=== PATIENT | male | born 1955 | race Caucasian/White ===

== ENCOUNTER 2019-07-13 07:45 | Inpatient (IN) | payer MEDICARE ==
[~2019-07-13] VITALS: Ht 165.1 cm; Wt 74.0 kg
[~2019-07-13 07:45] MED LIST: CLARITIN10 MG OR; EPIPEN0.3 MG IM; MORPHINE SUL60 MG OR
[2019-07-13 08:26] LABS: HEMATOCRIT 48.9 % (39.0-50.0); HEMOGLOBIN 16.1 g/dl (14.0-18.0); IMMATURE GRANULOCYTES 0.7 % (0.0-5.0); MEAN CELL VOLUME 90.7 fL CALC (80.0-100.0); MEAN CORPUSCULAR HGB 29.9 pG CALC (26.0-32.0); MEAN CORPUSCULAR HGB CONC 32.9 g/L CALC (32.0-36.0); NEUT# 14.62 thou/uL (1.82-7.42); RED BLOOD COUNT 5.39 mill/uL (4.70-6.10); RED CELL DISTRI WIDTH 12.5 % (11.5-15.5)
[2019-07-13 08:43] LABS: ALBUMIN 5.1 g/dL (3.2-5.0); ALKALINE PHOSPHATASE 93 u/l (38-126); ANION GAP 17 (6-22 (CALC)); BILIRUBIN, TOTAL 0.9 mg/dL (0.0-1.4); BUN 17 mg/dL (8-23); BUN/CREATININE RATIO 14 (12-20 (CALC)); CARBON DIOXIDE 27 mmol/l (22-30); CHLORIDE 104 mmol/l (95-108); CREATININE 1.2 mg/dL (0.7-1.3); GFR > 60 ML/MIN (>=60 (CALC)); GFR FOR AFR.AMER. > 60 ML/MIN (>=60 (CALC)); LIPASE 413 u/l (23-300); POTASSIUM 4.1 mmol/l (3.5-5.1); SGOT/AST 29 u/l (19-48); SODIUM 144 mmol/l (137-146); TOTAL PROTEIN 8.5 g/dL (6.3-8.2)
[2019-07-13] MEDS ORDERED: LISINOPRIL10 MG PO (08:45)
[2019-07-13] MEDS ORDERED: LORTAB 1010 MG PO (08:45)
[2019-07-13] MEDS ORDERED: MS CONTIN30 MG PO (08:46)
[2019-07-13 10:34] LABS: URINE BILIRUBIN - DIPSTICK NEGATIVE (NEGATIVE); URINE BLOOD DIPSTICK NEGATIVE (NEGATIVE); URINE COLOR YELLOW; URINE GLUCOSE - DIPSTICK NEGATIVE (NEGATIVE); URINE KETONE NEGATIVE (NEGATIVE); URINE LEUK ESTERASE NEGATIVE (NEGATIVE); URINE NITRITE - DIPSTICK NEGATIVE (Negative); URINE PH 5.5 (4.5-8.0); URINE SPECIFIC GRAVITY <=1.005; URINE UROBILINOGEN - DIPSTICK 0.2 E.U./dL (0.2)
[2019-07-13 10:54] LABS: URINE PROTEIN - DIPSTICK Trace mg/dL (NEG-TRACE)
[2019-07-13 13:35] VITALS: BP 195/94
[2019-07-13 14:32] VITALS: BP 172/89
[2019-07-13 16:53] VITALS: BP 146/81
[2019-07-13 19:34] VITALS: BP 159/73
[2019-07-14 01:43] VITALS: BP 156/86
[2019-07-14 04:00] VITALS: BP 167/80
[2019-07-14 05:17] LABS: MEAN CELL VOLUME 91.2 fL CALC (80.0-100.0); MEAN CORPUSCULAR HGB 29.7 pG CALC (26.0-32.0); MEAN CORPUSCULAR HGB CONC 32.5 g/L CALC (32.0-36.0); RED BLOOD COUNT 4.55 mill/uL (4.70-6.10); RED CELL DISTRI WIDTH 12.5 % (11.5-15.5)
[2019-07-14 05:34] LABS: HEMATOCRIT 41.5 % (39.0-50.0); HEMOGLOBIN 13.5 g/dl (14.0-18.0)
[2019-07-14 05:39] LABS: ANION GAP 12 (6-22 (CALC)); BUN 18 mg/dL (8-23); BUN/CREATININE RATIO 18 (12-20 (CALC)); CARBON DIOXIDE 25 mmol/l (22-30); CHLORIDE 107 mmol/l (95-108); GFR > 60 ML/MIN (>=60 (CALC)); GFR FOR AFR.AMER. > 60 ML/MIN (>=60 (CALC)); SODIUM 140 mmol/l (137-146)
[2019-07-14 08:00] VITALS: BP 148/61
[2019-07-14 12:00] VITALS: BP 171/82
[2019-07-14 15:05] VITALS: BP 155/67
[2019-07-14 16:49] LABS: URINE BILIRUBIN - DIPSTICK NEGATIVE (NEGATIVE); URINE BLOOD DIPSTICK NEGATIVE (NEGATIVE); URINE COLOR YELLOW; URINE GLUCOSE - DIPSTICK NEGATIVE (NEGATIVE); URINE KETONE NEGATIVE (NEGATIVE); URINE LEUK ESTERASE NEGATIVE (Negative); URINE NITRITE - DIPSTICK NEGATIVE (Negative); URINE PROTEIN - DIPSTICK NEGATIVE (NEG-TRACE); URINE SPECIFIC GRAVITY <=1.005; URINE UROBILINOGEN - DIPSTICK 0.2 E.U./dL (0.2)
[2019-07-14 16:52] LABS: URINE CLARITY CLEAR
[2019-07-14 19:37] VITALS: BP 154/62
[2019-07-15 00:10] VITALS: BP 114/56
[2019-07-15 04:35] VITALS: BP 111/58
[2019-07-15 05:26] LABS: HEMOGLOBIN 11.9 g/dl (14.0-18.0); IMMATURE GRANULOCYTES 0.7 % (0.0-5.0); MEAN CELL VOLUME 92.7 fL CALC (80.0-100.0); MEAN CORPUSCULAR HGB 29.8 pG CALC (26.0-32.0); MEAN CORPUSCULAR HGB CONC 32.2 g/L CALC (32.0-36.0); NEUT# 4.64 thou/uL (1.82-7.42); RED BLOOD COUNT 3.99 mill/uL (4.70-6.10); RED CELL DISTRI WIDTH 12.7 % (11.5-15.5)
[2019-07-15 05:47] LABS: ALKALINE PHOSPHATASE 49 u/l (38-126); ANION GAP 10 (6-22 (CALC)); BUN 15 mg/dL (8-23); BUN/CREATININE RATIO 15 (12-20 (CALC)); CARBON DIOXIDE 23 mmol/l (22-30); CHLORIDE 110 mmol/l (95-108); GFR > 60 ML/MIN (>=60 (CALC)); GFR FOR AFR.AMER. > 60 ML/MIN (>=60 (CALC)); POTASSIUM 3.8 mmol/l (3.5-5.1); SGOT/AST 13 u/l (19-48); SODIUM 139 mmol/l (137-146)
[2019-07-15 05:52] LABS: ALBUMIN 2.6 g/dL (3.2-5.0); BILIRUBIN, TOTAL 0.2 mg/dL (0.0-1.4)
[2019-07-15 08:56] VITALS: BP 163/76
[2019-07-15 09:01] VITALS: BP 163/76
== END 2019-07-15 12:44 | disposition home or self-care (01) | DRG 389 ==
LOC: ED 07:45 → ED-I 11:55 → ED 12:25 → MS2 12:26
PROVIDERS: Family Medicine; ADMIT Internal Medicine; ATTEND Internal Medicine
DX: K56.51 Intestinal adhesions [bands], with partial obstruction (principal); G90.50 Complex regional pain syndrome I, unspecified; R19.7 Diarrhea, unspecified; I10 Essential (primary) hypertension; N40.0 Benign prostatic hyperplasia without lower urinary tract symptoms; N41.1 Chronic prostatitis; Z90.3 Acquired absence of stomach [part of]; T46.4X6A Underdosing of angiotensin-converting-enzyme inhibitors, initial encounter; Z91.128 Patient's intentional underdosing of medication regimen for other reason
CPT/HCPCS: G0378; J1650; Q9967

== ENCOUNTER 2019-10-07 11:27 | Emergency (ER) | payer MEDICARE ==
[~2019-10-07] VITALS: Ht 165.1 cm; Wt 75.0 kg
[~2019-10-07 11:27] MED LIST changes: +LISINOPRIL10 MG PO; +LORTAB 1010 MG PO; +MS CONTIN30 MG PO
[2019-10-07] MEDS ORDERED: AMLODIPINE BESY10 MG PO (11:39)
[2019-10-07 12:57] LABS: HEMATOCRIT 42.7 % (39.0-50.0); HEMOGLOBIN 13.8 g/dl (14.0-18.0); IMMATURE GRANULOCYTES 0.4 % (0.0-5.0); MEAN CELL VOLUME 90.5 fL CALC (80.0-100.0); MEAN CORPUSCULAR HGB 29.2 pG CALC (26.0-32.0); MEAN CORPUSCULAR HGB CONC 32.3 g/L CALC (32.0-36.0); NEUT# 5.01 thou/uL (1.82-7.42); RED BLOOD COUNT 4.72 mill/uL (4.70-6.10); RED CELL DISTRI WIDTH 13.3 % (11.5-15.5)
[2019-10-07 13:18] LABS: ANION GAP 16 (6-22 (CALC)); BUN 17 mg/dL (8-23); BUN/CREATININE RATIO 16 (12-20 (CALC)); CARBON DIOXIDE 27 mmol/l (22-30); CHLORIDE 98 mmol/l (95-108); GFR > 60 ML/MIN (>=60 (CALC)); GFR FOR AFR.AMER. > 60 ML/MIN (>=60 (CALC)); POTASSIUM 4.1 mmol/l (3.5-5.1); SODIUM 137 mmol/l (137-146)
[2019-10-07] MEDS ORDERED: DOXYCYC MONO100 M2 PO (15:03)
[2019-10-07] MEDS ORDERED: PROAIR HFA108 MCG/AC PO (15:03)
[2019-10-07 15:16] VITALS: BP 124/69
== END 2019-10-07 15:16 | disposition home or self-care (01) ==
LOC: ED 11:27
PROVIDERS: Family Medicine
DX: J06.9 Acute upper respiratory infection, unspecified (principal); I10 Essential (primary) hypertension; R07.9 Chest pain, unspecified; R06.02 Shortness of breath
CPT/HCPCS: Q9967

== ENCOUNTER 2022-11-28 09:42 | Emergency (ER) | payer MEDICARE ==
[~2022-11-28] VITALS: Ht 175.3 cm; Wt 83.9 kg
[~2022-11-28 09:42] MED LIST changes: +AMLODIPINE BESY10 MG PO; +DOXYCYC MONO100 M2 PO; +PROAIR HFA108 MCG/AC PO
[2022-11-28 09:50] VITALS: BP 205/99
[2022-11-28 09:57] VITALS: BP 179/113
[2022-11-28 10:01] VITALS: BP 204/96
[2022-11-28 10:31] VITALS: BP 176/96
[2022-11-28 10:37] LABS: BASO% 0.3 % (0-3); EOS% 1.7 % (0-8); HEMATOCRIT 45.3 % (39.0-50.0); HEMOGLOBIN 14.9 g/dl (14.0-18.0); IMMATURE GRANULOCYTES 0.5 % (0.0-5.0); LYMPH% 20.5 % (15-41); MEAN CELL VOLUME 91.3 fL CALC (80.0-100.0); MEAN CORPUSCULAR HGB CONC 32.9 g/dL CAL (32.0-36.0); MONO% 9.1 % (2-13); NEUT# 5.84 thou/uL (1.82-7.42); NEUT% 67.9 % (42-76); RED BLOOD COUNT 4.96 mill/uL (4.70-6.10); RED CELL DISTRI WIDTH 12.6 % (11.5-15.5)
[2022-11-28 11:00] VITALS: BP 163/82
[2022-11-28 11:20] VITALS: BP 163/82
[2022-11-28 11:29] LABS: ALBUMIN 4.4 g/dL (3.2-5.0); ALKALINE PHOSPHATASE 65 u/l (38-126); ANION GAP 10 (6-22 (CALC)); BILIRUBIN, TOTAL 0.5 mg/dL (0.0-1.4); BUN 16 mg/dL (8-23); BUN/CREATININE RATIO 15 (12-20 (CALC)); CARBON DIOXIDE 29 mmol/l (22-30); CHLORIDE 106 mmol/l (95-108); CREATININE 1.1 mg/dL (0.7-1.3); GFR FOR AFR.AMER. > 60 ML/MIN (>=60 (CALC)); GFR OTHER RACES > 60 ML/MIN (>=60 (CALC)); POTASSIUM 4.1 mmol/l (3.5-5.1); SGOT/AST 24 u/l (19-48); SODIUM 141 mmol/l (137-146); TOTAL PROTEIN 7.2 g/dL (6.3-8.2)
== END 2022-11-28 11:20 | disposition left against medical advice (07) ==
LOC: ED 09:42 → ED-I 11:06 → ED 11:20
PROVIDERS: Emergency Medicine
DX: R07.9 Chest pain, unspecified (principal); I25.10 Atherosclerotic heart disease of native coronary artery without angina pectoris; I25.2 Old myocardial infarction; I10 Essential (primary) hypertension; J44.9 Chronic obstructive pulmonary disease, unspecified; Z53.29 Procedure and treatment not carried out because of patient's decision for other reasons; Z20.822 Contact with and (suspected) exposure to COVID-19

== ENCOUNTER 2024-06-26 08:49 | Emergency (ER) | payer OTHER, MEDICARE ==
[~2024-06-26] VITALS: Ht 175.3 cm; Wt 82.0 kg
[~2024-06-26 08:49] MED LIST changes: +COZAAR25 MG PO
[2024-06-26 09:02] VITALS: BP 172/77
[2024-06-26 09:03] VITALS: BP 145/76
[2024-06-26 09:31] VITALS: BP 157/71
[2024-06-26 10:00] VITALS: BP 181/87
[2024-06-26 10:19] VITALS: BP 181/87
== END 2024-06-26 10:25 | disposition home or self-care (01) | DRG 605 ==
LOC: ED 08:49
DX: S60.021A Contusion of right index finger without damage to nail, initial encounter (principal); G90.50 Complex regional pain syndrome I, unspecified; I10 Essential (primary) hypertension; J44.9 Chronic obstructive pulmonary disease, unspecified; W23.0XXA Caught, crushed, jammed, or pinched between moving objects, initial encounter; Z79.891 Long term (current) use of opiate analgesic